=== PATIENT | male | born 1975 | race Caucasian/White ===

== ENCOUNTER 2017-01-09 04:08 | Day surgery (SDC) | payer SELFPAY ==
[~2017-01-09] VITALS: Ht 182.9 cm; Wt 103.0 kg
[~2017-01-09 04:08] MED LIST: NOHOMEMEDS
[2017-01-09 04:58] LABS: HEMATOCRIT 42.8 % (38.0-50.0); MCH 29.9 PG (29.0-34.0); MCHC 33.2 G/DL (30.0-36.0); MCV 90.1 FL (86-99); MEAN PLAT.VOLUME 9.9 uM^3 (9.0-12.4); PLATELET COUNT 300 K/uL (156-360); RBC DIS.WIDTH-CV 13.9 % (11.8-14.6); RBC DIS.WIDTH-SD 46.1 % (39-53); RED BLOOD COUNT 4.75 M/uL (4.00-5.50); WHITE BLOOD COUNT 9.5 K/uL (4.1-10.2)
[2017-01-09 05:06] LABS: CHLORIDE 103 mEq/L (99-109); POTASSIUM 3.7 mEq/L (3.7-5.4); SODIUM 139 mEq/L (136-147)
[2017-01-09 05:08] LABS: GLUCOSE 186 mg/dL (70-99)
[2017-01-09 05:09] LABS: ANION GAP 16 MEQ/L (2-14)
[2017-01-09 05:12] LABS: GFR ESTIMATE (CALCULATED) > 59 mL/min/
[2017-01-09 05:13] LABS: UREA NITROGEN (BUN) 17 mg/dL (9-23)
[2017-01-09 06:02] LABS: TOTAL BILIRUBIN 0.4 mg/dL (0.0-1.0)
[2017-01-09 06:03] LABS: ALKALINE PHOSPHATASE 89 IU/L (3-129)
[2017-01-09 06:05] LABS: DIRECT BILIRUBIN 0.1 mg/dL (0.0-0.3)
[2017-01-09 06:41] LABS: Estimated Average Glucose 117 mg/dL (70-123); HEMOGLOBIN A1c (GLYCOHEMOGLOB) 5.7 % HGB (Below 5.7)
[2017-01-09 10:00] VITALS: BP 109/56
[2017-01-09] MEDS ORDERED: MUCINEX1200 MG PO (13:53)
[2017-01-09 13:55] VITALS: BP 121/61
[2017-01-09] MEDS ORDERED: EXCEDRIN MIGRA1 EAC3 PO (13:55)
[2017-01-09] MEDS ORDERED: PEPCID20 MG PO (13:56)
[2017-01-09 17:14] VITALS: BP 104/59
[2017-01-09 20:10] VITALS: BP 117/64
[2017-01-10 00:20] VITALS: BP 126/77
[2017-01-10 04:00] VITALS: BP 127/65
[2017-01-10 07:35] VITALS: BP 131/72
[2017-01-10 11:32] VITALS: BP 114/65
[2017-01-10] MEDS ORDERED: OXYCODONE HCL5 MG PO (14:25)
[2017-01-10] MEDS ORDERED: VENTOLIN HFA18 GM IH (14:25)
[2017-01-10] MEDS ORDERED: ZITHROMAX Z-PA250 MG PO (14:25)
== END 2017-01-10 15:44 | disposition home or self-care (01) ==
LOC: EME 04:08 → TRA 04:08 → 2SOUTH 07:48 → ENRESERV 07:49 → 2EAST 09:52
PROVIDERS: Physician Assistant
DX: S31.831A Laceration without foreign body of anus, initial encounter (principal); S31.801A Laceration without foreign body of unspecified buttock, initial encounter; W18.09XA Striking against other object with subsequent fall, initial encounter; Y92.009 Unspecified place in unspecified non-institutional (private) residence as the place of occurrence of the external cause; R55 Syncope and collapse; K21.9 Gastro-esophageal reflux disease without esophagitis; F17.290 Nicotine dependence, other tobacco product, uncomplicated; E66.9 Obesity, unspecified; Z68.30 Body mass index [BMI] 30.0-30.9, adult; Z88.0 Allergy status to penicillin
CPT/HCPCS: 70450; 71020; 80048; 80076; 81003; 83036; 85027; 93005; 94640; 94640 76; 99202; 99281; 99285; G0378; J0330; J0690; J1170; J1335; J2405; J2710; J3010; J7030; J7120; S0020